=== PATIENT | female | born 1980 | race Caucasian/White ===

== ENCOUNTER 2022-06-13 12:00 | Emergency (ER) | payer OTHER, SELFPAY ==
[2022-06-13 12:01] VITALS: BP 185/111; PULSE 127; RESP 18; TEMP 37.1; O2SAT 100
--- NOTE | 2022-06-13 12:15 | US_ITS ---
STUDY: ULTRASOUND OF THE FEMALE PELVIS - COMPLETE REASON FOR EXAM: Female, 42 years old. vaginal bleeding LMP: Unknown. TECHNIQUE: Transabdominal and Transvaginal TECHNICAL QUALITY: Adequate. COMPARISON: None. FINDINGS: The uterus is anteverted and is in a midline position. The uterus measures 10.2 x 7.5 x 4.5 cm. Normal uterine cervix. The endometrium measures 10 mm in thickness, and is hyperechoic. There is no demonstrated endometrial mass. There is no demonstrated myometrial mass. I.U.D. - The patient does not have an I.U.D. The right ovary is visualized. The right ovary measures 2.7 x 3.6 x 1.6 cm. There is no right ovarian cyst or ovarian mass. There is no visualized right adnexal mass or complex lesion. There is normal arterial and normal venous vascularity. The left ovary is visualized. The left ovary measures 2.3 x 3.7 x 1.7 cm. There is no left ovarian cyst or ovarian mass. There is no visualized left adnexal mass or complex lesion. There is normal arterial and normal venous vascularity. There is no fluid in the cul-de-sac. Bladder is incompletely distended US/Pelvic w/ Transvaginal IMPRESSION: No suspicious sonographic findings Electronically Signed: Emeka Pritchett MD at 13:51 EDT ,
--- NOTE | 2022-06-13 12:19 | EDS_ITS ---
HPI HPI - Female History of Present Illness Chief Complaint: Vag Bleeding Detail of Chief Complaint: Vaginal bleeding Informant: patient Narrative Narrative: Patient presents to the emergency department complaint vaginal bleeding that she has been contending with for over a year. She sees MUNICIPAL [employer] [employer]ER Dr. Brown who has tried multiple medications to try to get the bleeding to stop however unsuccessful. Patient states that over the last 4 days she is passing clots and bleeding heavily. Today she felt lightheaded and dizzy and feels like her heart is racing. Patient describes some lower abdominal cramping. Patient is to be scheduled for uterine ablation. PFSH PFS Home Medications norethindrone acetate 5 mg tablet mg 06/13/22 [History Last Taken Unknown] Allergy/AdvReac Type Severity Reaction Status Date / Time No Known Allergies Allergy Verified 06/13/22 12:03 Social History Smoking Status: Former smoker ROS ROS ED Review of Systems ROS Unobtainable: other Constitutional Constitutional ED: Reports lethargy; Denies chills, fever(s), sweats or weight loss Eyes Eyes: Denies blurry vision, change in vision or diplopia ENT ENT ED: Denies rhinorrhea or sore throat Cardiovascular Cardiovascular: Reports racing heartbeat; Denies chest pain or orthopnea Respiratory/Chest Respiratory/Chest: Denies cough, dyspnea, dyspnea on exertion, orthopnea or sputum Gastrointestinal Gastrointestinal: Denies abdominal pain, diarrhea, nausea or vomiting Genitourinary Genitourinary ED: Reports other Details: Vaginal bleeding ; Denies dysuria, hematuria or urinary frequency Musculoskeletal Musculoskeletal: Denies arthralgias, back pain, myalgias or neck pain Integumentary Denies abscess, Abrasions or rash Neurologic Neurologic: Denies headache(s) or weakness Psychiatric Psychiatric: Denies anxiety, depression or suicidal thoughts Endocrine Endocrinology: Denies polydipsia, polyphagia or polyuria Hematologic/Lymphatic Hematologic/Lymphatic: Denies easy bleeding, easy bruising or lymphadenopathy Allergic/Immunologic Allergic/Immunologic ED: Denies mouth swelling, tongue swelling or urticaria EXAM Physical Exam Const Vital Signs: 06/13/22 12:01 06/13/22 12:35 06/13/22 12:40 Temperature 98.7 F 97.2 F L Temperature Source Temporal Oral Pulse Rate 127 H 98 Pulse Rate [Lying] 98 Pulse Rate [Sitting (for 1 minute prior to obtaining)] 94 Pulse Rate [Standing (for 1 minute prior to obtaining)] 118 H Respiratory Rate 18 17 Blood Pressure 185/111 H 140/81 H Blood Pressure [Lying] 143/79 H Blood Pressure [Sitting (for 1 minute prior to obtaining)] 134/84 H Blood Pressure [Standing (for 1 minute prior to obtaining)] 135/97 H Blood Pressure Mean 135 100 Blood Pressure Mean [Lying] 100 Blood Pressure Mean [Sitting (for 1 minute prior to obtaining)] 100 Blood Pressure Mean [Standing (for 1 minute prior to obtaining)] 109 Pulse Ox 100 95 Oxygen Delivery Method Room Air Room Air Positive well nourished and well developed General Appearance ED: well developed and NAD HEENT Reports TM's clear and moist mucous membranes normocephalic and atraumatic; Negative for trauma or tenderness Tympanic Membrane ED: Yes TM's clear Eyes PERRL and EOMs intact bilaterally General Eye ED: Negative for pale conjunctiva or scleral icterus Neck no lymphadenopathy, supple and no JVD General: Negative for tenderness Chest Wall inspection of chest normal and palpation of chest normal Chest: Negative for tenderness Resp normal respiratory effort and clear to auscultation bilaterally Effort and Inspection: Negative for respiratory distress or pain with movement Auscultation: Negative for rhonchi, wheezes or diminished lung sounds Cardio regular rate, regular rhythm, S1 normal heart sound, S2 normal heart sound and no murmurs Peripheral Pulses: pulses 2+ throughout GI normal to inspection, nondistended, normoactive bowel sounds, soft to palpation, non-tender, non-distended and no masses Back/Spine no CVA tenderness and no thoracic nor lumbar tenderness Extremity normal to inspection General Extremety ED: Negative for edema General Extremity: Negative for edema Neuro oriented x3, CN's II-XII intact bilaterally, no sensory deficits noted and gait normal Sensorium / Orientation: awake, alert, oriented to person, oriented to place and oriented to time Motor Exam: strength 5/5 throughout and strength abnormal Psych mental status grossly normal Skin no rashes or lesions noted and no wounds MDM MDM MDM Narrative Medical decision making narrative: Patient presents with abnormal vaginal bleeding that is been ongoing. Being followed by [facility]ER. Scheduled to have an ablation. Patient had an IV line established and CBC with differential and patient will have 11.4 with hemoglobin 10.9 hematocrit of 33 and platelet count of 386. Serum test was negative. Patient had a pelvic ultrasound which showed no suspicious findings. Case discussed with [facility]TE[employer]CE WORKER on-call for Dr. Brown therefore spoke with Dr. Bray who recommended discharge to home and their office will contact her for further instructions. No adjustments in medications made. Lab Data Attestation: I reviewed the patient's lab results. Labs: Laboratory Results - last 24 hr 06/13/22 06/13/22 12:19 12:19 WBC 11.4 H RBC 3.84 L Hgb 10.9 L Hct 33.4 L MCV 87.0 MCH 28.4 MCHC 32.6 RDW Std Deviation 39.8 RDW Coeff of Richy 12.5 Plt Count 386 MPV 10.2 Immature Gran % (Auto) 0.700 Neut % (Auto) 78.5 H Lymph % (Auto) 15.3 L Winkler % (Auto) 4.7 Eos % (Auto) 0.4 Baso % (Auto) 0.4 Absolute Neuts (auto) 9.0 H Absolute Lymphs (auto) 1.75 Nucleated RBC % 0 Serum , Qual NEGATIVE Radiography Diagnostic Testing: Clinical Impression(s) from Imaging Studies Pelvic/Transvag US 06/13/22 12:15 IMPRESSION: No suspicious sonographic findings Electronically Signed: Emeka Pritchett MD at 13:51 EDT , Discharge Plan Triage Chief Complaint: Vag Bleeding ED Provider: Frederick Romero Dx/Rx/DC Orders Clinical Impression: Dysfunctional uterine bleeding Instructions: ED Dysfunctional Uterine Bleeding Prescriptions: No Action norethindrone acetate 5 mg tablet Label Comments: take 1 tablet by mouth EVERY HOUR UNTIL BLEEDING SLOW, UP TO 5 TA... (REFER TO PRESCRIPTION NOTES). Primary Care Provider: Mary Escobar Referrals: Kassidy Brown MD [Med Staff - Active Staff] - Keep [facility] appointment Care Physician,No Primary [Non-Staff] - Disposition Disposition: Home, Self Care
[2022-06-13 12:35] VITALS: BP 140/81; PULSE 98; RESP 17; TEMP 36.2; O2SAT 95
[2022-06-13 12:35] LABS: Absolute Lymphocyte Count 1.75 X10^3/uL (0.83-4.51); Basophil# 0.04 X10^3/uL; Basophil% 0.4 % (0-1); Eosinophil# 0.04 X10^3/uL; Eosinophils% 0.4 % (0-5); Hematocrit 33.4 % (37-47); Hemoglobin 10.9 g/dL (12.0-15.0); Lymphocyte # 1.75 X10^3/ul (0.83-4.51); Lymphocyte % 15.3 % (19-41); Mean Corp Hgb Conc 32.6 g/dL (32-36); Mean Corpuscular Hgb 28.4 pg (27.0-32.0); Mean Platelet Vol. 10.2 fl (6.2-12.0); Monocyte# 0.54 X10^3/uL; Monocyte% 4.7 % (0-10); NRBC Flagged by Analyzer 0 % (0-5); Neutrophil # 8.97 X10^3/uL (2.7-7.7); Neutrophil % 78.5 % (47-70); Platelet Count 386 K/mm3 (150-450); RBC Distribution Width CV 12.5 % (11.6-14.6); RBC Distribution Width SD 39.8 fl (35.1-43.9); Red Blood Count 3.84 M/mm3 (4.2-5.4); White Blood Count 11.4 K/mm3 (4.4-11.0)
[2022-06-13] MEDS: 0.9% Normal Saline 1,000 ML 1000 ML IV (12:35)
[2022-06-13 12:39] VITALS: BMI 40.4
[2022-06-13 12:40] VITALS: BP 134/84; BP 135/97; BP 143/79; PULSE 118; PULSE 94; PULSE 98
[2022-06-13 12:42] LABS: Internal QC Validated? YES +Cl - CLEAR BKGD; Pregnancy, Serum, hCG Quali. NEGATIVE Negative
== END 2022-06-13 14:12 | disposition home or self-care (01) ==
PROVIDERS: Emergency Provider Emergency Medicine; PCP Internal Medicine; Visit Provider Emergency Medicine
DX: N93.8 Other specified abnormal uterine and vaginal bleeding (principal); Z87.891 Personal history of nicotine dependence
CPT/HCPCS: 76830; 76856; 84703; 85025; 86850; 86900; 86901; 93005; 96360; 99284; J7030; A4216

== ENCOUNTER 2022-08-04 08:48 | Day surgery (SDC) | payer OTHER, SELFPAY ==
--- NOTE | 2022-07-26 16:34 | PCM.HP.BLA ---
History and Physical Date of Admission: 08/04/22 HPI: The patient is a 42 year old female presenting for pre-operative visit. She is scheduled for laparoscopic bilateral salpingectomy with hysteroscopy and endometrial ablation, for sterilization, menorrhagia on 08/04/2022. Procedure discussed along with risks, benefits and complications. Other alternatives discussed for management. Consent form signed? Yes. ? ? PAST MEDICAL HISTORY PAST MEDICAL HISTORY Diagnosis Date ? Mitral valve disorders(424.0) 1994 ? Urinary calculus, unspecified 2004 ? Renal stones, right pyelonephritis ? ? PAST SURGICAL HISTORY PAST SURGICAL HISTORY Procedure Laterality Date ? DELIVERY ONLY ? 2011 ? , low transverse ? PAST SURGICAL HISTORY OF ? ? ? WISDOM TEETH ? ? ? CURRENT MEDICATIONS No current outpatient medications on file. ? No current facility-administered medications for this visit. ? ? ALLERGIES: Patient has no known allergies. ? PERSONAL HISTORY: SOCIAL HISTORY Social History ? Tobacco Use ? Smoking status: Former ? ? Years: 3.00 ? ? Types: Cigarettes ? ? Quit date: 03/05/2003 ? ? Years since quittin.4 ? Smokeless tobacco: Never Vaping Use ? Vaping Use: Never used Substance Use Topics ? Alcohol use: Yes ? ? Alcohol/week: 1.7 standard drinks ? ? Comment: Occasionally ? Drug use: No ? FAMILY HISTORY: FAMILY HISTORY FAMILY HISTORY Problem Relation Age of Onset ? other (endometriosis [Other]) Mother ? ? Cervical Cancer Mother ? ? Osteoporosis Mother ? ? Heart Father ? ? Emphysema Maternal Grandfather ? ? Heart Paternal Grandmother ? ? other (PARKINSONS [Other]) Paternal Grandmother ? ? Heart Paternal Grandfather ? ? Stroke Paternal Grandfather ? ? Cancer Maternal Aunt ? ? ovarian ? Cancer Paternal Aunt ? ? ovarian ? Breast Cancer Paternal Aunt ? ? Cervical Cancer Other ? ? x7 maternal cousins ? ? REVIEW OF SYMPTOMS: GENERAL: denies fevers or chills ENDOCRINOLOGY: has not been on steroids Cardiology : denies palpitations or chest pain Respiratory: denies SOB or cough Hematology: denies history of prolonged bleeding or easy bruising or VTE Allergy: Denies history of personal or family history of allergy to anesthesia ? PHYSICAL EXAMINATION: ? VITALS: Blood pressure 142/88, pulse 96, weight 223 lb (101.2 kg), last menstrual period 03/03/2022, SpO2 98 %. ? GENERAL: The patient is well nourished, well hydrated in no acute distress. , The patient is oriented to time, place, and person. NECK: Supple. No lynphadenopathy, normal thyroid, no thyromegaly. LUNGS: Clear to auscultation bilaterally. no wheezes, rhonchi or rales HEART: Regular rate and rhythm, Normal heart sounds, and No murmurs or gallops ? IMPRESSION: menorrhagia, sterilization request ? PLAN: The risks/benefits/alternatives and personal involved for the planned laparoscopic bilateral salpingectomy and hysteroscopy with endometrial ablation were reviewed with the patient. Her questions were answered to her satisfaction and she desires to proceed. Consent was signed. I reviewed with her postop instructions and expectations. ? ? I have reviewed and updated past medical and surgical history, medications and allergies Assessment & Plan Assessment/Plan (1) Menorrhagia: (2) Request for sterilization:
[2022-08-04] VITALS (10 sets, daily range): BP systolic 119–141; BP diastolic 62–77; PULSE 74–94; RESP 16; TEMP 36.9–37.2; O2SAT 92–100; BMI 39.9
[2022-08-04 09:05] LABS: Internal QC Validated? YES +Cl - CLEAR BKGD; Pregnancy, Urine Negative Negative
[2022-08-04] MEDS: Lactated Ringers 1,000 ML 15 ML IV (09:23)
[2022-08-04] MEDS: Acetaminophen 500 MG Tablet 1000 MG PO (09:23)
[2022-08-04] MEDS: Ketorolac 30 MG/ML Syringe IV (09:24)
[2022-08-04 09:26] LABS: Hematocrit 33.9 % (37-47); Hemoglobin 10.4 g/dL (12.0-15.0); Mean Corp Hgb Conc 30.7 g/dL (32-36); Mean Corpuscular Hgb 24.3 pg (27.0-32.0); Mean Corpuscular Volume 79.2 fL (81-99); Mean Platelet Vol. 9.9 fl (6.2-12.0); Platelet Count 355 K/mm3 (150-450); RBC Distribution Width CV 14.8 % (11.6-14.6); RBC Distribution Width SD 42.5 fl (35.1-43.9); Red Blood Count 4.28 M/mm3 (4.2-5.4); White Blood Count 15.1 K/mm3 (4.4-11.0)
[2022-08-04 09:40] LABS: Anion Gap 6 (5-15); BUN 9 mg/dL (7-18); Calcium,Total 8.7 mg/dL (8.5-10.1); Chloride 107 mmol/L (98-107); Creatinine, Serum 0.75 mg/dL (0.55-1.02); EST Glomerular Filtration Rate 90 mL/min (>60); Est Glom Filt Rate - Afr Amer 109 mL/min (>60); Glucose 96 mg/dL (74-106); Sodium Level 140 mmol/L (136-145)
--- NOTE | 2022-08-04 10:30 | FALS_PTH ---
PATIENT: IVÁN WYNN LOC: [facility] [place] U#:[id number] AGE/SX: 42/F ROOM: RE08/04/[address]: Dr. Kassidy Brown MD : 1980 BED: DIS: 08/04/2022 SPEC #: [id number] RECD: 08/04/22 16:18 STATUS: TOÑITO REID #: [id number] SISI: 08/04/22 10:[address]: Kassidy Brown DEPT: SURGICAL PATHOLOGY RECD BY: Judy Isidro ENTERED: 08/07/22 08:55 SP TYPE: FALL TUBES OTHR DR: Marita Burks Tissues: Fallopian tube Procedures: Surgery Specimen Level II HEADER OPERATION: Laparoscopic salpingectomy, hysteroscopy, endometrial ablation PRE-OP DIAGNOSIS: Menorrhagia, sterilization TISSUE SUBMITTED: Bilateral fallopian tubes MICROSCOPIC DIAGNOSIS Right and left fallopian tubes, bilateral salpingectomies: Benign paratubal cysts. AM:[email or web address] 08/08/2022 MICROSCOPIC DESCRIPTION Slides are reviewed. GROSS DESCRIPTION Received in fixative is one container labeled with the patient's name and designated bilateral fallopian tubes. The specimen consists of bilateral fallopian tubes including fimbrial ends. One fallopian tube measures 5.0 cm in length and 0.5 cm in diameter. The second fallopian tube measures 7.0 cm in length and 0.5 cm in diameter. A detached fimbrial end is present which measures 0.6 x 0.6 x 0.3 cm. The fallopian tubes are not identified as right or left. Sections reveal unremarkable cut surfaces. Admission Liaison sections are submitted in two cassettes as follows: 1 ? fallopian tube with attached fimbrial end, 2 ? second fallopian tube with detached fimbrial end. / SJ:[email or web address] 08/07/2022 TC:5 CPT: 65876 x2
--- NOTE | 2022-08-04 11:00 | DCINST_ITS ---
Discharge Instructions Diet Discharge Diet: No restrictions Activity Discharge Activity: May Take a Tub Bath (in 2 weeks) May shower in (days): 1 May resume sexual activity in: 2 weeks Lifting Restrictions: none Dressing / Incision Call your doctor if your incision/area has: Sudden Increased Bleeding and Foul Smelling Discharge Call your doctor if you observe: Fever of 101 or Higher and Using more than 1 pad per hour (for 2 hrs in a row) Remove Dressing in: leave until fall off Cleanse incision/area with: Soap & Water Follow Up Care Please Follow Up With: Kassidy Brown MD When: 1-2 weeks or as needed. Call [phone] to make an appointment or with any concerns or send a [employer] message Test Results: Test results from this visit will be discussed in further detail at your follow- up appointment, if applicable. Discharge Plan Admission Primary Reason for Your Visit: Tubal sterilization and endometrial ablation Attending Provider: Kassidy Brown Primary Care Provider: Marita Burks Discharge Orders/Prescriptions Prescriptions: No Action NK Referrals / Follow Up: Marita Burks [Primary Care Provider] - Disposition Disposition (needs filled in before D/C Order can be placed): Home, Self Care
[2022-08-04] MEDS: Bupivacaine Mpf 0.5% 30 ML VIAL (11:25)
--- NOTE | 2022-08-04 12:10 | PCM.OPRPT ---
Problems Associated Problem List Diagnoses (1) Menorrhagia: (2) Request for sterilization: Report of Operation Date of Procedure: 08/04/22 Pre-Operative Diagnosis: Sterilization request, menorrhagia Post-Operative Diagnosis: Same plus extensive adhesions of omentum to anterior abdominal wall Surgery/Procedure Performed:: Laparoscopic bilateral salpingectomy, hysteroscopy with Grace endometrial ablation, extensive lysis of adhesions of omentum to anterior abdominal wall. Description of Surgical Findings:: Normal cervix and vagina. Normal overall uterus and ovaries. Some dense adhesions of the anterior bladder wall and bladder flap to the anterior uterus. Dense 4 x 4 centimeter adhesions of omentum to midline abdominal wall. Surgeon: Kassidy Brown psychology intern: Marylu Lopez Type of Anesthesia: General Anesthesiologist: Aileen Bee Special Medications: none Specimen's removed: bilateral fallopian tubes Drains: none Estimated Blood Loss (mL): 10 Fluids Replaced: 1000 Description of Procedure: The patient was taken to the operating room where she was prepped and draped in the dorsolithotomy position. A weighted speculum was placed in the vagina and the anterior lip of the cervix was grasped with a tenaculum. The Nazanin uterine manipulator was placed and the remainder of the instruments were removed from the vagina. Attention was turned to the abdomen. All port sites were infiltrated with 0.5% Marcaine before skin incisions were made. A 5 mm intraumbilical incision was made. The anterior abdominal wall was tented up with 2 towel clamps while a 5 mm blade less visiport trocar and sleeve were inserted under direct visualization. Intraperitoneal placement was confirmed with the laparoscope. The pneumoperitoneum was created and the underlying abdominal contents were intact. The patient was placed in Trendelenburg. Right and left lower quadrant ports were placed under direct visualization lateral to the inferior epigastric vessels. It was noted there were extensive adhesions of the omentum to the anterior abdominal wall. It was good to limit visualization and manipulation of instruments. It took 16 minutes to visualize and safely take down the adhesions with the Enseal device. This added, difficulty and time to the procedure. The bowel was swept away and the above findings were noted. The Enseal device was used to clamp seal and transect the antimesenteric portions of the right tube to the cornual insertion of the uterus. The tube was amputated from the uterus and the pedicles were all confirmed to be hemostatic. The same procedure was performed on the contralateral side. The specimens were brought out through a 5 mm port. The pedicles were again examined and found to be hemostatic. The lateral ports were removed under direct visualization and no active bleeding was noted. The pneumoperitoneum was released. The skin incisions were closed with Monocryl suture in a subcuticular fashion and skin glue . The patient was taken to the OR where she was prepped and draped in dorsal lithotomy position. The weighted speculum was placed in the vagina and the anterior lip of the cervix was grasped with a single-tooth tenaculum. . The cervix was dilated serially with Hegar dilators. The 5mm hysteroscope was placed into the uterine cavity and the above findings were noted. Bilateral tubal ostia were identified. The uterus sounded to 10cm and the cervical length was 4 cm. The endometrial cavity length was 6cm. The hysteroscope was removed. The Grace device was set to 5 cm. The instrument was then seated into the endometrial cavity and the indicator was in the green. The cervical seal balloon was inflated and the uterine integrity test was passed. The ablation procedure was initiated and completed without interruption. During the ablation procedure gentle traction was held on the tenaculum and the Grace device was held up against the uterine fundus. When the ablation procedure was completed the Grace was removed. The tenaculum was removed and the tenaculum site was noted to be hemostatic. All sponge and needle counts were correct. A vaginal sweep was performed by me. The patient was awakened and taken to the recovery room in stable condition. Dr. Lopez provided camera guidance and tissue manipulation during the laparoscopic portion of the case. I performed the entire procedure with assistance Hysteroscopic ins: 150cc normal saline Hysteroscopic outs:50cc Grafts/Implants Used: none Procedure Start Time: 11:25 Procedure Stop Time: 12:04 Complications none Admit VTE Documentation VTE Present on Admission: No VTE Mechan Device Prophylaxis: SCD's VTE Pharm Prophylaxis ordered?: No Reason prophylaxis not ordered:: Procedure Not Indicated
[2022-08-04] MEDS: Lactated Ringers 1,000 ML 75 ML IV (12:16)
== END 2022-08-04 14:50 | disposition home or self-care (01) ==
LOC: SDC 08:50 → AC 08:52
PROVIDERS: Referring Provider Obstetrics & Gynecology; Visit Provider Obstetrics & Gynecology
PROC: (CPT 58661; principal; 2022-08-04 10:15)
DX: N92.0 Excessive and frequent menstruation with regular cycle (principal); N83.8 Other noninflammatory disorders of ovary, fallopian tube and broad ligament; K66.0 Peritoneal adhesions (postprocedural) (postinfection); Z30.2 Encounter for sterilization; Z87.891 Personal history of nicotine dependence
CPT/HCPCS: 58661; 58563; 00840; 80048; 81025; 85027; 86850; 86900; 86901; 88302; J7120; C1760; J2405